=== PATIENT | male | born 1940 | race Asian ===

== ENCOUNTER 2022-11-11 10:21 | Emergency (ER) | payer OTHER, MEDICARE ==
[~2022-11-11] VITALS: Ht 157.5 cm; Wt 65.3 kg
[2022-11-11 10:31] VITALS: BP_SYST 117
[2022-11-11] MEDS ORDERED: ESOM20CA33 PO (11:13)
[2022-11-11 11:29] VITALS: BP_SYST 120
== END 2022-11-11 11:27 | disposition home or self-care (01) ==
LOC: SED 10:21
DX: K21.9 Gastro-esophageal reflux disease without esophagitis (principal); R05.9 Cough, unspecified; Z79.899 Other long term (current) drug therapy
CPT/HCPCS: 71045; 99283